=== PATIENT | female | born 1940 | race Caucasian/White ===

== ENCOUNTER 2018-08-10 14:34 | Emergency (ER) | payer MEDICARE ==
[~2018-08-10] VITALS: Ht 157.5 cm; Wt 78.9 kg
[2018-08-10] MEDS ORDERED: LEVOTHYROXINE (14:46)
[2018-08-10] MEDS ORDERED: SERTRALINE (14:46)
--- NOTE | 2018-08-10 14:51 | NUR ---
[employer] officers x2 are at bedside.
--- NOTE | 2018-08-10 14:52 | NUR ---
MD is talking to patient's spouse@this time.
[2018-08-10 15:03] LABS: BASOPHILS % (AUTO) 0.8 % (0.0-2.0); EOSINOPHILS # (AUTO) 0.1 K/uL (0.0-0.7); EOSINOPHILS % (AUTO) 2.9 % (0.0-7.0); HEMATOCRIT 40.4 % (31.2-41.9); HEMOGLOBIN 13.5 g/dL (10.9-14.3); LYMPHOCYTES # (AUTO) 1.3 K/uL (20.0-40.0); LYMPHOCYTES % (AUTO) 31.7 % (20.5-51.5); MEAN CORPUSCULAR HEMOGLOBIN 32.1 uug (24.7-32.8); MEAN CORPUSCULAR HGB CONC 33 g/dL (32.3-35.6); MEAN CORPUSCULAR VOLUME 96.5 fL (75.5-95.3); MONOCYTES # (AUTO) 0.3 K/uL (2.0-10.0); MONOCYTES % (AUTO) 6.5 % (0.0-11.0); NEUTROPHILS # (AUTO) 2.3 K/uL (1.8-8.9); NEUTROPHILS % (AUTO) 58.1 % (38.5-71.5); PLATELET COUNT (AUTO) 189 K/uL (179-408); RED BLOOD CELL COUNT(AUTO) 4.19 MIL/uL (3.63-4.92)
[2018-08-10 15:08] LABS: CARBON DIOXIDE 27 mmol/L (21-32); CHLORIDE 106 mmol/L (98-107); GLUCOSE 103 mg/dL (74-106); UREA NITROGEN, BLOOD 24 mg/dL (7-18)
[2018-08-10 15:11] LABS: ETHANOL < 3 MG/DL (0-0)
[2018-08-10 15:25] LABS: *AMPHETAMINE, URINE NEGATIVE (NEGATIVE); *BARBITURATE, URINE NEGATIVE (NEGATIVE); *CANNABINOID, URINE NEGATIVE (NEGATIVE); *COCCAINE, URINE NEGATIVE (NEGATIVE); *OPIATE, URINE NEGATIVE (NEGATIVE); *PHENCYCLIDINE SCREEN,URINE NEGATIVE (NEGATIVE)
--- NOTE | 2018-08-10 16:11 | NUR ---
Patient is now complaining of migraine headaches ("...my usual headaches" per patient.) MD notified.
--- NOTE | 2018-08-10 16:14 | NUR ---
WARNER Beaulieu is now here in our ER.
[2018-08-10] MEDS ORDERED: ACETAMINOPHEN ES 500 MG TABLET ONE (16:21)
[2018-08-10] MEDS ORDERED: ACETAMINOPHEN 325 MG TABLET PO ONE (16:30)
--- NOTE | 2018-08-10 16:40 | NUR ---
Nursing admitting supervisor Katharina came to ER & said that this patient will be admitted to 3rd floor medical-surgical floor as an overflow with 1:1 sitter after 1900.
--- NOTE | 2018-08-10 16:47 | NUR ---
Patient is still talking to Brittnee, our psych licensed master social worker. Patient's daughter and spouse are here as well.
--- NOTE | 2018-08-10 17:30 | NUR ---
Patient is medically cleared for discharge and cleared by our psych psychotherapist social worker to go home. Patient discharged to home in stable conditon & slow steady gait. Written and verbal after care instructions given to patient and family. Patient and family (spouse & adult daughter) verbalized understanding & compliance of instructions.
== END 2018-08-10 17:36 | disposition home or self-care (01) ==
LOC: ER 14:34
DX: F43.20 Adjustment disorder, unspecified (principal); F32.9 Major depressive disorder, single episode, unspecified; Z79.899 Other long term (current) drug therapy
CPT/HCPCS: 36415; 80048; 80307; 85025; 93005; 99284; G0480; A4663; A9150